=== PATIENT | male | born 1985 | race African-American/Black ===

== ENCOUNTER 2018-08-24 10:08 | Emergency (ER) | payer SELFPAY ==
[~2018-08-24] VITALS: Ht 180.3 cm; Wt 72.7 kg
[2018-08-24 10:32] VITALS: Ht 180.3 cm; Wt 72.7 kg
[2018-08-24 11:23] LABS: BASOPHILS 0.7 % (0-2); EOSINOPHILS 2.3 % (0-7); HEMATOCRIT 43.5 % (42.0-54.0); HEMOGLOBIN 15.4 g/dL (13.5-17.5); IMMATURE GRANULOCYTES 0.3 % (0-5); LYMPHOCYTES 32.8 % (15-50); MCH 32.6 pg (26.0-34.0); MCHC 35.4 g/dL (31.0-37.0); MCV 92.2 fL (80.0-100.0); MEAN PLATELET VOLUME 11.1 fL (7.4-10.4); MONOCYTES 7.9 % (2-11); PLATELET COUNT 194 10x3/uL (130-400); RBC 4.72 10x6/uL (4.20-6.10); RDW 13.1 % (11.5-14.5); WBC 8.6 10x3/uL (4.8-10.8)
[2018-08-24 11:41] LABS: ALBUMIN 3.6 g/dL (3.4-5.0); ALKALINE PHOSPHATASE 88 U/L (46-116); ALT (SGPT) 30 U/L (10-68); BILIRUBIN - TOTAL 0.29 mg/dL (0.2-1.3); CALC OSMOLALITY 276 mosm/kg (275-300); CALCIUM 9.1 mg/dL (8.5-10.1); CARBON DIOXIDE 25.5 mmol/L (21.0-32.0); CHLORIDE - SERUM 102 mmol/L (98-107); CREATININE - SERUM 1.1 mg/dL (0.6-1.3); GLUCOSE 99 mg/dL (74-106); POTASSIUM - SERUM 3.9 mmol/L (3.5-5.1); SODIUM 139 mmol/L (136-145); UREA NITROGEN 9 mg/dL (7-18); eGFR NON AFRICAN AMERICAN 83 mL/min (90-120)
[2018-08-24] MEDS ORDERED: OMNICEF300 MG PO (13:28)
[2018-08-24] MEDS ORDERED: PHENERGAN DM SYR5 ML PO (13:30)
[2018-08-24] MEDS ORDERED: TAMIFLU75 MG PO (13:31)
[2018-08-24 13:43] VITALS: BP 128/91
== END 2018-08-24 13:44 | disposition home or self-care (01) ==
LOC: D.ER 10:08
PROVIDERS: Family Medicine
DX: J01.90 Acute sinusitis, unspecified (principal); J20.9 Acute bronchitis, unspecified; R50.9 Fever, unspecified; F17.200 Nicotine dependence, unspecified, uncomplicated